=== PATIENT | female | born 1995 | race Caucasian/White ===

== ENCOUNTER 2019-03-26 02:07 | Inpatient (IN) | payer BC ==
[2019-03-26] MEDS ORDERED: Sodium Chloride 0.9% 10 ML Syringe FLUSH PRN (02:55)
[2019-03-26] MEDS ORDERED: Nalbuphine 20 MG/ML 1 ML Syringe IVPUSH PRN (02:55)
[2019-03-26] MEDS ORDERED: Oxytocin/Lactated Ringers 10 UNIT/1,000 ML BAG IV SCH (03:00)
[2019-03-26] MEDS ORDERED: Lactated Ringers 1,000 ML IV SCH (03:00)
[2019-03-26] MEDS ORDERED: Ampicillin 2 GM in Sodium Chloride 0.9% 100 ML IV ONE (03:15)
--- NOTE | 2019-03-26 05:50 | PCM.LDHP ---
L&D History of Present Illness - General Date of Service: 03/26/19 Admit Problem/Dx: Patient Status Order with Admit Dx/Problem 03/26/19 02:56 Patient Status [ADT] Routine Admission Diagnosis/Problem Admission Diagnosis/Problem 03/26/19 05:42 Rocío is a 23-year-old 1 para 0 presently at 40-3/7 weeks gestational age with an AVEL of 03/23/2019 admitted to labor and delivery in early active labor. Source of Information: Patient History Limitations: Reports: No Limitations - History of Present Illness Introduction:: Rocío Is a 23-year-old 1 para 0 white female was admitted in early active labor on 03/26/2019. She has an AVEL of 03/23/2019 placing her at 40-3/7 weeks gestational age. Patient began labor during the course of the night of . Tri approximately every 3-5 minutes and heart tones are reassuring. CONTROL TECHNICIAN history: Patient is a 1 para 0 AVEL of 03/23/2019 is determined by early ultrasound done on 08/31/2018 at 10-6/7 weeks gestational age. It is supported by a second ultrasound done at 20-4/7 weeks. Her course was relatively unremarkable. Patient plans to breast-feed. She declined genetic testing. She desires natural labor but is open to an epidural for analgesia if necessary. Group B strep screen is positive therefore suture is a candidate for antibiotic prophylaxis in labor and delivery. She is hypothyroid but has been clinically and laboratory euthyroid on replacement during the course of . T Dap immunization was administered on 01/18/2019. She is rubella immune. Her first visit was on 08/31/2018. Patient was seen on a regular basis during the course of . Her weight gain was 133-164.4 pounds for a 31.4 pound weight gain. Her vital signs remained stable throughout the course and her fundal height growth was appropriate. Laboratory testing and shows her blood to be AAB positive. Antibody screen is negative. First hemoglobin was 14.1 g/dL and platelets are 233,000. Her rubella titer shows immunity. RPR is nonreactive. Her urine culture was unremarkable. Hepatitis B surface antigen and HIV assays were both negative. Chlamydia and gonorrhea assays both negative. Second trimester labs showed hemoglobin of 12.5 g/dL. Platelets are 174,000. Her 1 hour glucose was 113. Group B strep screen was positive. Allergies: None Medications: 1. vitamins 1 daily 2. Levothyroxine 50 g daily Past medical history: 1. Hypothyroidism 2. Environmental allergies. Past surgical history: 1. Tonsillectomy 2013 Family history: Mother is alive and well as his father. She has 3 siblings who are all alive and well. Maternal grandfather is alive but has had back surgery. Maternal grandmother is alive and well. Paternal grandfather is alive but with heart disease and has had a heart attack and is presently on medication. Paternal grandmother is alive and well. There is no significant family history of cancer, related issues, anesthesia concerns, bleeding or blood clotting problems. She does have a maternal uncle with hemophilia but states that her mother is not a carrier. Social history: Patient is . is Agustín Robles. They live in [place], [place]. She does not use any significant loss of call, drugs or tobacco. Review of systems: In general patient has no complaints. Patient has no concerns. Baby has been active. Skin: Negative Lungs: No infectious symptoms or shortness of breath Cardiovascular: No chest pain or exercise intolerance Breasts: No lumps, changes in size, pain, dimpling, discharge or axillary or supraclavicular concerns. GI: Negative : Negative Musculoskeletal: Negative Neurological: Negative In general the patient is well-developed, well-nourished, pleasant female of stated age in no acute distress. Skin is warm dry without lesions. HEENT, neck and back within normal limits. Lungs are clear with good breath sounds in all lung tsai. Cardiovascular exam shows regular and rhythm without murmurs. Abdomen is gravid with fundal height on last evaluation clinic at 37.5 cm. Baby in vertex presentation by Rolly maneuvers. Genital exam on last evaluation in clinic shows cervix to be 2 cm, 80% effaced, very soft, -3, mid position Extremities and neurological exam are grossly within normal limits. - Related Data Allergies/Adverse Reactions: Allergies Allergy/AdvReac Type Severity Reaction Status Date / Time No Known Allergies Allergy Verified 03/26/19 03:02 Home Medications: Home Meds Levothyroxine [Synthroid] 50 mcg PO DAILY 03/26/19 [History] Past Medical History HEENT History: Reports: None CONTROL TECHNICIAN History: Reports: - Past Surgical History HEENT Surgical History: Reports: Tonsillectomy Social & Family History - Family History Family Medical History: Noncontributory - Tobacco Use Smoking Status *Q: Never Smoker - Caffeine Use Caffeine Use: Reports: None - Recreational Drug Use Recreational Drug Use: No H&P Review of Systems - Review of Systems: Review Of Systems: See Below L&D Exam - Exam Exam: See Below - Vital Signs Vital Signs: Last Vital Signs Temp 36.6 C 03/26/19 02:28 Pulse 59 L 03/26/19 02:28 Resp 16 03/26/19 02:28 BP 127/77 03/26/19 02:28 Pulse Ox 100 03/26/19 02:28 Weight: 75.523 kg - Patient Data Lab Results Last 24 hrs: Laboratory Results - last 24 hr 03/26/19 Range/Units 03:10 WBC 12.37 H (3.98-10.04) K/mm3 RBC 4.53 (3.98-5.22) M/mm3 Hgb 13.7 (11.2-15.7) gm/L Hct 40.2 (34.1-44.9) % MCV 88.7 (79.4-94.8) fl MCH 30.2 (25.6-32.2) pg MCHC 34.1 (32.2-35.5) g/dl RDW Std Deviation 43.0 (36.4-46.3) fL Plt Count 143 L (182-369) K/mm3 MPV 11.7 (9.4-12.3) fl Neut % (Auto) 72.6 H (34.0-71.1) % Lymph % (Auto) 18.3 L (19.3-51.7) % [place] % (Auto) 7.8 (4.7-12.5) % Eos % (Auto) 0.9 (0.7-5.8) Baso % (Auto) 0.2 (0.1-1.2) % Neut # (Auto) 8.98 H (1.56-6.13) K/mm3 Lymph # (Auto) 2.26 (1.18-3.74) K/mm3 [place] # (Auto) 0.97 H (0.24-0.36) K/mm3 Eos # (Auto) 0.11 (0.04-0.36) K/mm3 Baso # (Auto) 0.02 (0.01-0.08) K/mm3 Result Diagrams: 03/26/19 03:10 Problem List Initiated/Reviewed/Updated: Yes Orders Last 24hrs: Active Orders 24 hr Category Date Time Status Patient Status [ADT] Routine ADT 03/26/19 02:56 Active Activity as Tolerated [RC] PFP Care 03/26/19 02:55 Active Communication Order [RC] ASDIRECTED Care 03/26/19 02:55 Active Heart Tones [RC] ASDIRECTED Care 03/26/19 02:55 Active Notify Provider [RC] PFP Care 03/26/19 02:55 Active Notify Provider [RC] PRN Care 03/26/19 02:55 Active Peripheral IV Care [RC] . DIRECTED Care 03/26/19 02:55 Active Vital Signs [RC] PER UNIT ROUTINE Care 03/26/19 02:28 Active Vital Signs [RC] PER UNIT ROUTINE Care 03/26/19 02:55 Active Regular Diet [DIET] Diet 03/26/19 Breakfast Active RAPID PLASMA REAGIN,RPR [CHEM] Routine Lab 03/26/19 03:10 Received Ampicillin 1 gm Med 03/26/19 07:30 Active Sodium Chloride 0.9% [Normal Saline] 100 ml IV Q4H Lactated Ringers [Ringers, Lactated] 1,000 ml Med 03/26/19 03:00 Active IV ASDIRECTED Nalbuphine [Nubain] Med 03/26/19 02:55 Active 10 mg IVPUSH Q2H PRN Oxytocin/Lactated Ringers [Pitocin in LR 10 Units/1,000 Med 03/26/19 03:00 Active ML] 10 unit in 1,000 ml IV TITRATE Sodium Chloride 0.9% [Saline Flush] Med 03/26/19 02:55 Active 10 ml FLUSH ASDIRECTED PRN Electronic Heart Tones Ext w TOCO [WOMSER] Oth 03/26/19 02:55 Ordered Routine Electronic Heart Tones Internal [WOMSER] Per Unit Oth 03/26/19 02:55 Ordered Routine Peripheral IV Insertion Adult [OM.PC] Routine Ot 03/26/19 02:55 Ordered Resuscitation Status Routine Resus Stat 03/26/19 02:28 Ordered Medication Orders Ampicillin Sodium 1 gm/ Sodium (Chloride) 100 mls @ 200 mls/hr IV Q4H [place] Lactated Ringer's (Ringers, Lactated) 1,000 mls @ 100 mls/hr IV ASDIRECTED [place] Last Admin: 03/26/19 03:23 Dose: 100 mls/hr Oxytocin/Lactated Ringer's (Pitocin In Lr 10 Units/1,000 Ml) 10 unit in 1,000 mls @ 12 mls/hr IV TITRATE [place]; Protocol Nalbuphine HCl (Nubain) 10 mg IVPUSH Q2H PRN PRN Reason: pain Sodium Chloride (Saline Flush) 10 ml FLUSH ASDIRECTED PRN PRN Reason: Keep Vein Open Assessment/Plan Comment:: 1. 40-3/7 week intrauterine with an AVEL of 03/23/2019, admitted to labor and delivery in active early labor on 03/26/2019. 2. Group B strep screen positive. Patient candidate for ampicillin prophylaxis in L&D. 3. Rubella immune 4. Patient plans to breast-feed. 5. Patient desires natural labor but is open to epidural analgesia if she needs Plan: 1. Anticipate normal spontaneous vaginal delivery 2. Group B strep prophylaxis with ampicillin per protocol 3. Support breast-feeding decision 4. CBC, RPR upon admission to labor and delivery.
[2019-03-26] MEDS: Ampicillin 1 GM in Sodium Chloride 0.9% 100 ML IV SCH ×4 (07:31→19:25)
[2019-03-26] MEDS ORDERED: fentaNYL/Bupivacaine-NS 2 MCG/ML-0.125%/PF 100 ML Bag EPIDUR ONE (07:32)
[2019-03-26] MEDS ORDERED: fentaNYL 100 MCG/2 ML SDV EPIDUR PRN (07:32)
[2019-03-26] MEDS ORDERED: diphenhydrAMINE 50 MG/ML SDV IVPUSH PRN (07:32)
[2019-03-26] MEDS ORDERED: ePHEDrine 50 MG/ML SDV IVPUSH PRN (07:32)
[2019-03-26] MEDS ORDERED: Lidocaine 1% 50 ML MDV ONE (16:48)
[2019-03-26] MEDS ORDERED: Lidocaine 1% 50 ML MDV INJECT ONE (19:23)
--- NOTE | 2019-03-26 20:57 | PCM.SN ---
- Free Text/Narrative Note: Rocío is a 23-year-old 1, now para 1001 white female admitted in early active labor on 03/26/2019. She has an AVEL of 03/23/2018 placing her at 40-3/7 weeks gestational age upon admission. She began labor during the course of the night on 03/25/2019. Tri every 3-5 minutes with normal heart tones patient was admitted to labor and delivery. She underwent artificial rupture membranes with resultant clear amniotic fluid. Patient progressed steadily towards complete. She progressed with natural childbirth. She became completely dilated approximately 2 hours before her delivery. Lidocaine 1%10 mL was used to anesthetize the perineal area. At 2031 hrs. patient delivered a viable, shirley, female with Apgars of 9 and 9 , weight of 3580 g (7 pounds 14.3 ounces), a length of 21.0 inches in a left occiput anterior position. Baby was placed on mom's abdomen and nose were bulb suctioned. Cord was allowed to pulsate for approximately 3 minutes and then was clamped 2 and cut by the baby's father. Upon delivering the baby Pitocin was started IV to facilitate increase in uterine tone and decreased likelihood of bleeding. After cord was clamped the cord blood was obtained. The placenta then delivered in a Marr presentation, appeared intact and complete and was discarded per patient desire. Small superficial first-degree perineal lacerations repaired with 3-0 Monocryl 4 stitches. Estimated blood loss was 100 mL. Condition: Good. Patient plans to breast-feed.
[2019-03-26] MEDS ORDERED: Witch Hazel Medicated Pads 40/Jar TOP PRN (21:12)
[2019-03-26] MEDS ORDERED: Docusate Sodium 100 MG Cap PO PRN (21:12)
[2019-03-26] MEDS ORDERED: Benzocaine/Menthol 20%-0.5% Spray 56 GM Canister TOP PRN (21:12)
[2019-03-26] MEDS ORDERED: Lanolin 100% Cream 7 GM Tube TOP PRN (21:12)
[2019-03-26] MEDS ORDERED: Acetaminophen 325 MG Tab PO PRN (21:12)
[2019-03-27] MEDS ORDERED: Levothyroxine 50 MCG Tab PO SCH (06:00)
[2019-03-27] MEDS: Ibuprofen 600 MG Tab PO PRN ×3 (06:01→20:10)
[2019-03-27] MEDS: LEVOTHYROXINE 50 MCG PO SCH ×2 (06:03→15:42)
--- NOTE | 2019-03-27 11:46 | PCM.SN ---
- Free Text/Narrative Note: note: Patient is doing well in the period. Minimal lochia, voiding well, ambulated without problems. Nursing without concerns. Patient is afebrile, vital signs are stable Abdomen is flat, soft, uterus is below the umbilicus and is firm and nontender. Legs are nontender. Assessment: recovery going well. Plan: Routine care. Patient be discharged home within the next 24-48 hours.
--- NOTE | 2019-03-28 10:00 | PCM.SN ---
- Free Text/Narrative Note: note: day 2 Patient is doing well in the period. Minimal lochia, voiding well, ambulated without problems. Nursing without concerns. Baby has had some bloody emesis and this is being evaluated. Otherwise. Baby has been started on antibiotics and an IV. Monitoring and evaluation is ongoing. Patient is afebrile, vital signs are stable Abdomen is flat, soft, uterus is below the umbilicus and is firm and nontender. Legs are nontender. Assessment: recovery going well. Plan: Routine care. Patient be discharged home today. Mom will be able to stay with the baby as the baby is still admitted.
--- NOTE | 2019-03-28 10:05 | PCM.DCSUM1 ---
Discharge Summary - Hospital Course Free Text/Narrative:: 23 -year-old 1, para 0 white female in active labor at 40-3/7 weeks gestation. HPI Initial Comments: Rocío is a 23-year-old 1, now para 1001 white female admitted in early active labor on 03/26/2019. She has an AVEL of 03/23/2018 placing her at 40-3/7 weeks gestational age upon admission. She began labor during the course of the night on 03/25/2019. Tri every 3-5 minutes with normal heart tones patient was admitted to labor and delivery. She underwent artificial rupture membranes with resultant clear amniotic fluid. Patient progressed steadily towards complete. She progressed with natural childbirth. She became completely dilated approximately 2 hours before her delivery. Lidocaine 1%10 mL was used to anesthetize the perineal area. At 2031 hrs. patient delivered a viable, shirley, female infant with Apgars of 9 and 9 , weight of 3580 g (7 pounds 14.3 ounces), a length of 21.0 inches in a left occiput anterior position. Baby was placed on mom's abdomen and nose were bulb suctioned. Cord was allowed to pulsate for approximately 3 minutes and then was clamped 2 and cut by the baby's father. Upon delivering the baby Pitocin was started IV to facilitate increase in uterine tone and decreased likelihood of bleeding. After cord was clamped the cord blood was obtained. The placenta then delivered in a Marr presentation, appeared intact and complete and was discarded per patient desire. Small superficial first-degree perineal lacerations repaired with 3-0 Monocryl 4 stitches. Estimated blood loss was 100 mL. Condition: Good. Patient plans to breast-feed. the baby had some emesis with blood in it and is being evaluated, is presently on antibiotics. The baby will be staying after discharge of the mother. Nursing has been going well. Patient has minimal lochia. She is voiding well. She is desiring discharge from the hospital today. She will stay in the baby's room until baby is discharged. Diagnosis: Stroke: No - Discharge Data Discharge Date: 03/28/19 Discharge Disposition: Home, Self-Care 01 Condition: Good - Patient Instructions Diet: Regular Diet as Tolerated (Nursing diet with increased calories and calcium is recommended) Activity: As Tolerated ([place] or tampons until bleeding resolves.) Driving: May Drive Today Showering/Bathing: May Shower (May take a bath) Notify Provider of: Fever, Increased Pain, Swelling and Redness, Nausea and/or Vomiting - Discharge Plan Home Medications: Home Meds Levothyroxine [Synthroid] 50 mcg PO DAILY 03/26/19 [History] Acetaminophen [Tylenol] 650 mg PO Q4H PRN tablet 03/28/19 [Rx] Ibuprofen [Motrin] 600 mg PO Q4H PRN tablet 03/28/19 [Rx] - Discharge Summary/Plan Comment DC Time >30 min.: No Discharge Summary/Plan Comment: Discharge instructions: 1. Discharge home 2. Diet, activity and follow-up discussed with patient. Recommend nursing diet with increased calories and calcium. 3. Precautions given concern increased pain, bleeding, temperature, signs/ symptoms of DVT/PE. 4. Medications per home medication was printed, discussed with and given to the patient. 5. Return to clinic-[facility]. [facility] in 2 weeks. Diagnosis: Term -delivered Condition: Good - Patient Data Vitals - Most Recent: Last Vital Signs Temp 37.1 C 03/27/19 20:06 Pulse 67 03/27/19 20:06 Resp 16 03/27/19 20:06 BP 119/66 03/27/19 20:06 Pulse Ox 95 03/27/19 20:06 Weight - Most Recent: 75.523 kg Med Orders - Current: Current Medications Acetaminophen (Tylenol) 650 mg PO Q4H PRN PRN Reason: mild pain or fever Benzocaine/Menthol (Dermoplast Pain Relief [place]) 0 gm TOP ASDIRECTED PRN PRN Reason: Perineal Comfort Measure Last Admin: 03/26/19 23:00 Dose: 1 spray Docusate Sodium (Colace) 100 mg PO BID PRN PRN Reason: Constipation Emollient Ointment (Lansinoh Hpa) 0 gm TOP ASDIRECTED PRN PRN Reason: Sore Nipples Ibuprofen (Motrin) 600 mg PO Q4H PRN PRN Reason: Mild pain or fever Last Admin: 03/27/19 20:10 Dose: 600 mg Levothyroxine Sodium (Synthroid) 50 mcg PO ACBREAKFAST [facility] Last Admin: 03/27/19 15:42 Dose: Not Given Gisselle Yeung (Tucks) 1 pad TOP ASDIRECTED PRN PRN Reason: Pain Last Admin: 03/26/19 23:00 Dose: 1 applic Discontinued Medications Diphenhydramine HCl (Benadryl) 25 mg IVPUSH Q6H PRN PRN Reason: Itching Ephedrine Sulfate (Ephedrine Sulfate) 5 mg IVPUSH ASDIRECTED PRN PRN Reason: HYPOTENTSION Fentanyl (Sublimaze) 100 mcg EPIDUR Q3H PRN PRN Reason: Pain Fentanyl/Bupivacaine HCl (Uxlkhlwi-Nfroo-Ym 2 Mcg/Ml-0.125%) 100 ml EPIDUR ONETIME ONE Stop: 03/26/19 07:33 Last Admin: 03/26/19 19:23 Dose: Not Given Ampicillin Sodium 2 gm/ Sodium (Chloride) 100 mls @ 200 mls/hr IV ONETIME ONE Stop: 03/26/19 03:44 Last Admin: 03/26/19 03:23 Dose: 200 mls/hr Ampicillin Sodium 1 gm/ Sodium (Chloride) 100 mls @ 200 mls/hr IV Q4H [place] Last Admin: 03/26/19 19:25 Dose: 200 mls/hr Lactated Ringer's (Ringers, Lactated) 1,000 mls @ 100 mls/hr IV ASDIRECTED [place] Last Admin: 03/26/19 03:23 Dose: 100 mls/hr Oxytocin/Lactated Ringer's (Pitocin In Lr 10 Units/1,000 Ml) 10 unit in 1,000 mls @ 12 mls/hr IV TITRATE [place]; Protocol Last Titration: 03/26/19 20:34 Dose: 500 mls/hr Levothyroxine Sodium (Synthroid) 50 mcg PO ACBREAKFAST [place] Lidocaine HCl (Xylocaine 1%) Confirm Administered Dose 50 ml .ROUTE .STK-MED ONE Stop: 03/26/19 16:49 Last Admin: 03/26/19 19:23 Dose: Not Given Lidocaine HCl (Xylocaine 1%) 50 ml INJECT ONETIME ONE Stop: 03/26/19 19:24 Last Admin: 03/26/19 20:36 Dose: 50 ml Nalbuphine HCl (Nubain) 10 mg IVPUSH Q2H PRN PRN Reason: pain Sodium Chloride (Saline Flush) 10 ml FLUSH ASDIRECTED PRN PRN Reason: Keep Vein Open
[2019-03-28] MEDS: Ibuprofen 600 MG Tab PO PRN (10:17)
[2019-03-28] MEDS: LEVOTHYROXINE 50 MCG PO SCH (10:18)
== END 2019-03-28 14:40 | disposition home or self-care (01) | DRG 560 ==
LOC: JD.OB 02:07 → JD.OBCHECK 02:07 → JD.OB 02:56 → OBSVTOIN 20:32
PROVIDERS: ADMIT Obstetrics & Gynecology; ATTEND Obstetrics & Gynecology
PROC: 6A550ZT Pheresis of Cord Blood Stem Cells, Single (ICD-10-PCS; principal; 2019-03-26)
PROC: 10E0XZZ Delivery of Products of Conception, External Approach (ICD-10-PCS; principal; 2019-03-26)
PROC: 10907ZC Drainage of Amniotic Fluid, Therapeutic from Products of Conception, Via Natural or Artificial Opening (ICD-10-PCS; principal; 2019-03-26)
DX: O48.0 Post-term pregnancy (principal); Z3A.40 40 weeks gestation of pregnancy; O99.824 Streptococcus B carrier state complicating childbirth; O99.284 Endocrine, nutritional and metabolic diseases complicating childbirth; E03.9 Hypothyroidism, unspecified; Z37.0 Single live birth; Z79.890 Hormone replacement therapy
CPT/HCPCS: 36415; 59025; 59409; 85025; 86592; A9270-GY; J0290; J2001; J2590; J7030; J7120

== ENCOUNTER 2021-03-20 12:22 | Inpatient (IN) | payer BC ==
[2021-03-20] MEDS ORDERED: Oxytocin/Lactated Ringers 10 UNIT/1,000 ML BAG IV SCH (13:15)
[2021-03-20] MEDS ORDERED: Lactated Ringers 1,000 ML IV SCH (13:15)
[2021-03-20] MEDS ORDERED: Nalbuphine 10 MG/1 ML Vial IVPUSH PRN (13:15)
[2021-03-20] MEDS ORDERED: Ondansetron 4 MG/2 ML SDV IVPUSH PRN (13:15)
[2021-03-20] MEDS ORDERED: Sodium Chloride 0.9% 10 ML Syringe FLUSH PRN (13:15)
--- NOTE | 2021-03-20 16:06 | PCM.LDHP ---
L&D History of Present Illness - General Date of Service: 03/20/21 Admit Problem/Dx: Patient Status Order with Admit Dx/Problem 03/20/21 13:16 Patient Status [ADT] Routine 03/20/21 14:11 Patient Status [ADT] Routine Admission Diagnosis/Problem Admission Diagnosis/Problem Normal labor 03/20/21 15:56 Rocío is a 24-year-old 2 para 1-0-0-1 female who is at 40-0/7 weeks gestational age with an AVEL of 03/20/2021 admitted in active labor with advanced cervical dilation of 6 cm, 95% effacement, -1 station, mid position, very soft consistency and with baby in a cephalic presentation. Source of Information: Patient History Limitations: Reports: No Limitations - History of Present Illness Introduction:: Rocío is a 24-year-old 2 para 1-0-0-1 female who is at 40-0/7 weeks gestational age with an AVEL of 03/20/2021 admitted in active labor with advanced cervical dilation of 6 cm, 95% effacement, -1 station, mid position, very soft consistency and with baby in a cephalic presentation. She reports contractions started early this morning. She had been having intermittent contractions for the last 2 days. Baby has been active. She denies any rupture membranes or bleeding. PROCESS CONTROL MANAGER history: Patient is a 2 para 1-0-0-1. Her menarche was at age 14. Cycles q. 28 days. Normal length. Not using any control time of conception. LMP certain at 06/13/2020. Her LMP is used as a dating parameter for her and is supported by multiple ultrasounds during the course of her . Previous obstetric experience includes the following: Female born 03/26/2019 at 40-3/7 weeks gestational age after 12 hours of labor. weight was 7 pounds 14 ounces. . No anesthesia. Delivered at [facility]. Baby's name is Radha Quiroga. course. Patient was initially seen for the on 08/30/2020 and has been seen on a regular basis. She has been somewhat of a hands off patient. She was noted to have weight gain from 121.6 pounds up to 149.8 pounds. Fundal height growth was lagging somewhat during the course of early third trimester. Patient was evaluated with ultrasound at that time which placed her growth at approximately the 14th percentile. Follow-up of BPP's and ultrasounds were unremarked. Baby appears to be small in size but not to the point where there is a size less than dates discrepancy of concern. Patient desires natural labor. Her group B strep screen is negative. She refused any further evaluation after 03/01/2021 for small size baby. TSH done at initial labs was mildly elevated. On recheck it was normal. She declined genetic testing. She declined influenza vaccination. She declined Tdap. Her [place] depression screen score was 0/30. She plans to breast-feed. Patient is rubella immune. She had her varicella immunization 2000. Her hepatitis B immunization in 1995 and her meningococcal immunization in 2007. Laboratory testing in includes blood type AB+. Negative antibody screen. First hemoglobin is 14.4 g/dL and platelets are 219,000. She is rubella immune. RPR is nonreactive. Urine culture was negative. Hepatitis B surface antigen and HIV assays were both negative. Chlamydia and gonorrhea assays were both negative. TSH on 10/10/2020 was 4.129 milliunits/mL. Her second trimester hemoglobin was 13.2 g/dL and platelets are 189,000. Her diabetic screen test was normal at 96. RPR on 12/12/2020 was negative. Group B strep screen was negative. Free T4 on 10/10/2020 was 1.05. Recheck TSH on 12/13/2020 was normal. Allergies: None Medications: vitamins 1 p.o. daily Past medical history: 1. x1 2. Hypothyroidism recently diagnosed not on medications. 3. History of anxiety and depression Past surgical history: 1. Tonsillectomy 2013 Family history. Mother and father are alive and well. 3 siblings alive and well. Maternal grandfather is alive but has had back surgery. Maternal grandmother is alive and well. Paternal grandfather is alive but with heart disease, heart attack on medication. Paternal grandmother is at age 86 from pneumonia.. There is no family history of cancer, related issues, anesthesia related concerns, bleeding or blood clotting problems. She does have a maternal uncle with hemophilia but states her mother is not a carrier. Social history: Patient is . is [place]. She is a subc-pk-qoni mom. She lives in [place], [place]. She does not use any significant also alcohol, drugs or tobacco. Review of systems: In general patient has no complaints. The baby has been active. No problems are noted with the . Skin: Negative Lungs: No infectious symptoms or shortness of breath Cardiovascular: No chest pain or exercise intolerance Breasts: No lumps, changes in size, pain, dimpling, discharge or axillary or supraclavicular concerns. GI: Negative : changes only. Musculoskeletal: Negative Neurological: Negative Physical exam: In general the patient is well-developed, well-nourished, pleasant female of stated age in no acute distress. Skin is warm dry without lesions. HEENT, neck and back within normal limits. Lungs are clear with good breath sounds in all lung tsai. Cardiovascular exam shows regular and rhythm without murmurs. Exam done at first visit and not repeated at this time as it was normal then. Patient does plan to breast-feed. Abdomen is less fundal height in clinic at 36 cm. Baby in vertex presentation by Rolly maneuvers. Genital per digital exam shows cervix to be 6 cm, 95% effaced, -1 station, mid position and very soft. Baby in cephalic presentation. Membranes are intact. Patient chooses not to have AROM. - Related Data Allergies/Adverse Reactions: Allergies Allergy/AdvReac Type Severity Reaction Status Date / Time No Known Allergies Allergy Verified 03/26/19 03:02 Home Medications: Home Meds Levothyroxine [Synthroid] 50 mcg PO DAILY 03/26/19 [History] Acetaminophen [Tylenol] 650 mg PO Q4H PRN tablet 03/28/19 [Rx] Ibuprofen [Motrin] 600 mg PO Q4H PRN tablet 03/28/19 [Rx] Past Medical History - Past Health History Medical/Surgical History: Denies Medical/Surgical History HEENT History: Reports: None PROCESS CONTROL MANAGER History: Reports: Oncologic (Cancer) History: Reports: None - Past Surgical History HEENT Surgical History: Reports: Tonsillectomy Social & Family History - Family History Family Medical History: No Pertinent Family History - Tobacco Use Tobacco Use Status *Q: Never Tobacco User Second Hand Smoke Exposure: No - Caffeine Use Caffeine Use: Reports: None - Recreational Drug Use Recreational Drug Use: No H&P Review of Systems - Review of Systems: Review Of Systems: See Below L&D Exam - Exam Exam: See Below - Vital Signs Vital Signs: Last Vital Signs Temp 36.8 C 03/20/21 12:30 Pulse 64 03/20/21 12:30 Resp 16 03/20/21 12:30 BP 128/77 03/20/21 12:30 Pulse Ox 100 03/20/21 12:30 Weight: 68.039 kg - Patient Data Lab Results Last 24 hrs: Laboratory Results - last 24 hr 03/20/21 03/20/21 Range/Units 13:15 13:28 WBC 14.24 H (3.98-10.04) K/mm3 RBC 4.86 (3.98-5.22) M/mm3 Hgb 14.7 D (11.2-15.7) gm/dl Hct 43.4 (34.1-44.9) % MCV 89.3 (79.4-94.8) fl MCH 30.2 (25.6-32.2) pg MCHC 33.9 (32.2-35.5) g/dl RDW Std Deviation 44.8 (36.4-46.3) fL Plt Count 189 (182-369) K/mm3 MPV 10.6 (9.4-12.3) fl Neut % (Auto) 84.5 H (34.0-71.1) % Lymph % (Auto) 9.6 L (19.3-51.7) % [place] % (Auto) 5.3 (4.7-12.5) % Eos % (Auto) 0.3 L (0.7-5.8) Baso % (Auto) 0.1 (0.1-1.2) % Neut # (Auto) 12.04 H (1.56-6.13) K/mm3 Lymph # (Auto) 1.36 (1.18-3.74) K/mm3 [place] # (Auto) 0.75 H (0.24-0.36) K/mm3 Eos # (Auto) 0.04 (0.04-0.36) K/mm3 Baso # (Auto) 0.02 (0.01-0.08) K/mm3 Manual Slide Review Abnormal smear SARS-CoV-2 RNA (MATTHEW) Negative (NEGATIVE) Result Diagrams: 03/20/21 13:28 - Problem List (1) 40 weeks gestation of SNOMED Code(s): 64654927 ICD Code: Z3A.40 - 40 WEEKS GESTATION OF Status: Acute Current Visit: Yes Problem List Initiated/Reviewed/Updated: Yes Orders Last 24hrs: Active Orders 24 hr Category Date Time Status Patient Status [ADT] Routine ADT 03/20/21 14:11 Active Activity as Tolerated [RC] PFP Care 03/20/21 13:15 Active Communication Order [RC] ASDIRECTED Care 03/20/21 13:15 Active Notify Provider [RC] PFP Care 03/20/21 13:15 Active Notify Provider [RC] PRN Care 03/20/21 13:15 Active Peripheral IV Care [RC] . DIRECTED Care 03/20/21 13:16 Active Pump Management, Intrathecal [RC] ASDIRECTED Care 03/20/21 13:16 Active Vital Signs [RC] PER UNIT ROUTINE Care 03/20/21 13:15 Active Regular Diet [DIET] Diet 03/20/21 Lunch Active RAPID PLASMA REAGIN,RPR [CHEM] Routine Lab 03/20/21 13:28 Received Lactated Ringers [Ringers, Lactated] 1,000 ml Med 03/20/21 13:15 Active IV ASDIRECTED Nalbuphine [Nubain] Med 03/20/21 13:15 Active 10 mg IVPUSH Q2H PRN Ondansetron [Zofran] Med 03/20/21 13:15 Active 4 mg IVPUSH Q4H PRN Oxytocin/Lactated Ringers [Pitocin in LR 10 Units/1,000 Med 03/20/21 13:15 Active ML] 10 unit in 1,000 ml IV .CONTINUOUS Sodium Chloride 0.9% [Saline Flush] Med 03/20/21 13:15 Active 10 ml FLUSH ASDIRECTED PRN Electronic Heart Tones Ext w TOCO [WOMSER] Oth 03/20/21 13:15 Ordered Routine Electronic Heart Tones Internal [WOMSER] Per Unit Oth 03/20/21 13:15 Ordered Routine Peripheral IV Insertion Adult [OM.PC] Routine Oth 03/20/21 13:15 Ordered Resuscitation Status Routine Resus Stat 03/20/21 13:15 Ordered Medication Orders Oxytocin/Lactated Ringer's (Pitocin In Lr 10 Units/1,000 Ml) 10 unit in 1,000 mls @ 500 mls/hr IV .CONTINUOUS [place] Lactated Ringer's (Ringers, Lactated) 1,000 mls @ 100 mls/hr IV ASDIRECTED [place] Nalbuphine HCl (Nalbuphine 10 Mg/1 Ml Vial) 10 mg IVPUSH Q2H PRN PRN Reason: Pain Ondansetron HCl (Ondansetron 4 Mg/2 Ml Sdv) 4 mg IVPUSH Q4H PRN PRN Reason: Nausea/Vomiting Sodium Chloride (Sodium Chloride 0.9% 10 Ml Syringe) 10 ml FLUSH ASDIRECTED PRN PRN Reason: Keep Vein Open Assessment/Plan Comment:: 1Denise is a 24-year-old 2 para 1-0-0-1 female who is at 40-0/7 weeks gestational age with an AVEL of 03/20/2021 admitted in active labor with advanced cervical dilation of 6 cm, 95% effacement, -1 station, mid position, very soft consistency and with baby in a cephalic presentation. 2. Group B strep negative 3. Patient desires to nurse 4. Patient desires natural labor. 5. Patient declined Tdap, flu vaccination, genetic testing. Plan: 1. Anticipate 2. Natural labor 3. Support breast-feeding decision 4. Admission labs to include Covid19, CBC, RPR.
--- NOTE | 2021-03-20 17:21 | PCM.SN.2 ---
- Free Text/Narrative Note: Delivery note: Rocío is a 24-year-old 2 para now 2002 female who is at 40-0/7 weeks gestational age with an AVEL of 03/20/2021 admitted in active labor with advanced cervical dilation of 6 cm, 95% effacement, -1 station, mid position, very soft consistency and with baby in a cephalic presentation. Patient had been nemesio for several hours. Stage I: Approximately 8 hours - 10 hours as estimated by patient. Patient was admitted at 6 cm cervical dilation. She progressed quickly to complete cervical dilation. She requested to allow membranes to remain intact. She used no analgesia during stage I of labor. Cervix became completely dilated approximately 30 minutes prior to her delivery time. When patient began pushing membranes were artificially ruptured resulting in very mildly meconium-stained amniotic fluid. heart tones are generally reassuring throughout the stage I of labor. Contractions were allowed to progress naturally. Stage II: Baby delivered in a direct occiput posterior position. She delivered over an intact perineum. Baby was a viable, shirley, female named Anastasiia Valencia. She delivered at 1642 hrs. Apgars were 9 and 9, weight was 2910 g (6 pounds 7 ounces, length was 19.5 inches. The baby was placed on mom's abdomen, dried with a warm blanket, nose and mouth were bulb suction. The umbilical cord was allowed to pulsate for approximately 3 minutes after which was clamped x2 and cut by the baby's father Agustín. Should be noted there was a nuchal cord x1 around the neck and shoulder. This was reduced over the baby's body as the baby delivered. Pitocin was started after the baby is born and run at 500 cc an hour to facilitate increase in uterine tone and decrease likelihood of bleeding. Stage III: The umbilical cord had 3 vessels. Cord blood was obtained. The placenta delivered at 1657 hrs. in a Still fashion, appeared complete and intact and was discarded per patient desire. The perineum was visualized and no lacerations were noted therefore no sutures were placed. Estimated blood loss: 100 cc. Patient plans to breast-feed. Condition: Good.
[2021-03-20] MEDS ORDERED: Benzocaine/Menthol 20%-0.5% Spray 56 GM Canister TOP PRN (18:09)
[2021-03-20] MEDS ORDERED: Acetaminophen 325 MG Tab PO PRN (18:09)
[2021-03-20] MEDS ORDERED: Docusate Sodium 100 MG Cap PO PRN (18:09)
[2021-03-20] MEDS ORDERED: Witch Hazel Medicated Pads 40/Jar TOP PRN (18:09)
[2021-03-20] MEDS: Ibuprofen 600 MG Tab PO PRN (18:34)
[2021-03-21] MEDS: Ibuprofen 600 MG Tab PO PRN ×2 (00:59→07:36)
--- NOTE | 2021-03-21 07:38 | PCM.SN.2 ---
- Free Text/Narrative Note: note: day #1 Patient is doing well in the period. Minimal lochia, voiding well, ambulated without problems. Nursing without concerns. Patient is afebrile, vital signs are stable Abdomen is flat, soft, uterus is below the umbilicus and is firm and nontender. Legs are nontender. Assessment: recovery going well. Plan: Routine care. Patient be discharged home within the next 24-48 hours.
--- NOTE | 2021-03-21 07:55 | PCM.DCSUM1 ---
Discharge Summary - Hospital Course Free Text/Narrative:: Rocío is a 24-year-old 2 para now 2002 female who is at 40-0/7 weeks gestational age with an AVEL of 03/20/2021 admitted in active labor with advanced cervical dilation of 6 cm, 95% effacement, -1 station, mid position, very soft consistency and with baby in a cephalic presentation. Patient had been nemesio for several hours. Stage I: Approximately 8 hours - 10 hours as estimated by patient. Patient was admitted at 6 cm cervical dilation. She progressed quickly to complete cervical dilation. She requested to allow membranes to remain intact. She used no analgesia during stage I of labor. Cervix became completely dilated approx imately 30 minutes prior to her delivery time. When patient began pushing membranes were artificially ruptured resulting in very mildly meconium-stained amniotic fluid. heart tones are generally reassuring throughout the stage I of labor. Contractions were allowed to progress naturally. Stage II: Baby delivered in a direct occiput posterior position. She delivered over an intact perineum. Baby was a viable, shirley, female infant named Anastasiia Valencia. She delivered at 1642 hrs. Apgars were 9 and 9, weight was 2910 g (6 pounds 7 ounces, length was 19.5 inches. The baby was placed on mom's abdomen, dried with a warm blanket, nose and mouth were bulb suction. The umbilical cord was allowed to pulsate for approximately 3 minutes after which was clamped x2 and cut by the baby's father Agustín. Should be noted there was a nuchal cord x1 around the neck and shoulder. This was reduced over the baby's body as the baby delivered. Pitocin was started after the baby is born and run at 500 cc an hour to facilitate increase in uterine tone and decrease likelihood of bleeding. Stage III: The umbilical cord had 3 vessels. Cord blood was obtained. The placenta delivered at 1657 hrs. in a Still fashion, appeared complete and intact and was discarded per patient desire. The perineum was visualized and no lacerations were noted therefore no sutures were placed. Estimated blood loss: 100 cc. Patient plans to breast-feed. Patient is done well. She is nursing without problems, has minimal lochia and is voiding well. She is ambulating without concerns. She is desiring discharge home after 24 hours postdelivery. Condition: Good. Diagnosis: Stroke: No - Discharge Data Discharge Date: 03/21/21 Discharge Disposition: Home, Self-Care 01 Condition: Good - Referral to Home Health Primary Care Physician: Don Soto MD - Discharge Diagnosis/Problem(s) (1) 40 weeks gestation of SNOMED Code(s): 42866310 ICD Code: Z3A.40 - 40 WEEKS GESTATION OF Status: Acute Current Visit: Yes - Patient Instructions Diet: Regular Diet as Tolerated (Seen diet with increased calories and calcium as recommended) Activity: As Tolerated (No intercourse or tampons until bleeding resolves) Driving: May Drive Today Showering/Bathing: May Shower Showering/Bathing, Other: May take a bath Notify Provider of: Fever, Increased Pain, Swelling and Redness, Nausea and/or Vomiting - Discharge Plan Home Medications: Home Meds Acetaminophen [Tylenol] 650 mg PO Q4H PRN tablet 03/28/19 [Rx] Ibuprofen [Motrin] 600 mg PO Q4H PRN tablet 03/28/19 [Rx] Referrals: Don Soto MD [Primary Care Provider] - (Return to clinic[facility] weeks.) - Discharge Summary/Plan Comment DC Time >30 min.: No Discharge Summary/Plan Comment: Discharge instructions: 1. Discharge home 2. Diet, activity and follow-up discussed with patient. Recommend nursing diet with increased calories and calcium. 3. Precautions given concern increased pain, bleeding, temperature, signs/symptoms of DVT/PE. 4. Medications per home medication was printed, discussed with and given to the patient. 5. Return to clinic-Dr. Soto[facility] in 2 weeks. Diagnosis: Term -delivered Condition: Good - Patient Data Vitals - Most Recent: Last Vital Signs Temp 36.7 C 03/21/21 05:08 Pulse 73 03/21/21 05:08 Resp 14 03/21/21 05:08 BP 118/64 03/21/21 05:08 Pulse Ox 98 03/21/21 05:08 Weight - Most Recent: 68.039 kg I&O - Last 24 hours: Intake & Output 03/20/21 03/21/21 03/21/21 22:59 06:59 14:59 Intake Total 500 Balance 500 Lab Results - Last 24 hrs: Laboratory Results - last 24 hr 03/20/21 03/20/21 03/20/21 Range/Units 13:15 13:28 13:28 WBC 14.24 H (3.98-10.04) K/mm3 RBC 4.86 (3.98-5.22) M/mm3 Hgb 14.7 D (11.2-15.7) gm/dl Hct 43.4 (34.1-44.9) % MCV 89.3 (79.4-94.8) fl MCH 30.2 (25.6-32.2) pg MCHC 33.9 (32.2-35.5) g/dl RDW Std Deviation 44.8 (36.4-46.3) fL Plt Count 189 (182-369) K/mm3 MPV 10.6 (9.4-12.3) fl Neut % (Auto) 84.5 H (34.0-71.1) % Lymph % (Auto) 9.6 L (19.3-51.7) % [place] % (Auto) 5.3 (4.7-12.5) % Eos % (Auto) 0.3 L (0.7-5.8) Baso % (Auto) 0.1 (0.1-1.2) % Neut # (Auto) 12.04 H (1.56-6.13) K/mm3 Lymph # (Auto) 1.36 (1.18-3.74) K/mm3 [place] # (Auto) 0.75 H (0.24-0.36) K/mm3 Eos # (Auto) 0.04 (0.04-0.36) K/mm3 Baso # (Auto) 0.02 (0.01-0.08) K/mm3 Manual Slide Review Abnormal smear RPR Non-reactive (NONREACTIVE) SARS-CoV-2 RNA (MATTHEW) Negative (NEGATIVE) Med Orders - Current: Current Medications Acetaminophen (Acetaminophen 325 Mg Tab) 650 mg PO Q4H PRN PRN Reason: mild pain or fever Benzocaine/Menthol (Benzocaine/Menthol 20%-0.5% [place] 56 Gm Canister) 0 gm TOP ASDIRECTED PRN PRN Reason: Perineal Comfort Measure Docusate Sodium (Docusate Sodium 100 Mg Cap) 100 mg PO BID PRN PRN Reason: Constipation Ibuprofen (Ibuprofen 600 Mg Tab) 600 mg PO Q4H PRN PRN Reason: Mild pain or fever Last Admin: 03/21/21 07:36 Dose: 600 mg Documented by: Nirmala Multivit/Warrant Clerk/Iron/Folic Ac ( Multivitamin With Calcium/Folic Acid/Iron Tab) 1 each PO DAILY [facility] Witch Anjana (Witch Anjana Medicated Pads 40/Jar) 1 pad TOP ASDIRECTED PRN PRN Reason: Perineal Comfort Measure Discontinued Medications Oxytocin/Lactated Ringer's (Pitocin In Lr 10 Units/1,000 Ml) 10 unit in 1,000 mls @ 500 mls/hr IV .CONTINUOUS [place] Last Admin: 03/20/21 18:44 Dose: 500 mls/hr Documented by: Lactated Ringer's (Ringers, Lactated) 1,000 mls @ 100 mls/hr IV ASDIRECTED [place] Nalbuphine HCl (Nalbuphine 10 Mg/1 Ml Vial) 10 mg IVPUSH Q2H PRN PRN Reason: Pain Ondansetron HCl (Ondansetron 4 Mg/2 Ml Sdv) 4 mg IVPUSH Q4H PRN PRN Reason: Nausea/Vomiting Sodium Chloride (Sodium Chloride 0.9% 10 Ml Syringe) 10 ml FLUSH ASDIRECTED PRN PRN Reason: Keep Vein Open
[2021-03-21] MEDS ORDERED: Prenatal Multivitamin with Calcium/Folic Acid/Iron Tab PO SCH (09:00)
== END 2021-03-21 17:40 | disposition home or self-care (01) | DRG 560 ==
LOC: JD.OBCHECK 12:22 → JD.OB 12:27 → JD.OBCHECK 14:11 → JD.OB 14:11 → OBSVTOIN 16:52 → JD.OB 17:14
PROVIDERS: ADMIT Obstetrics & Gynecology; ATTEND Obstetrics & Gynecology
PROC: 10E0XZZ Delivery of Products of Conception, External Approach (ICD-10-PCS; principal; 2021-03-20)
PROC: 10907ZC Drainage of Amniotic Fluid, Therapeutic from Products of Conception, Via Natural or Artificial Opening (ICD-10-PCS; 2021-03-20)
DX: O48.0 Post-term pregnancy (principal); Z3A.40 40 weeks gestation of pregnancy; Z37.0 Single live birth; O77.0 Labor and delivery complicated by meconium in amniotic fluid; O69.81X0 Labor and delivery complicated by cord around neck, without compression, not applicable or unspecified; E03.9 Hypothyroidism, unspecified; Z20.822 Contact with and (suspected) exposure to COVID-19
CPT/HCPCS: 36415; 59025; 59409; 85025; 86592; A9270-GY; J2590; U0002

== ENCOUNTER 2023-01-28 08:50 | Inpatient (IN) | payer OTHER ==
[2023-01-28] MEDS ORDERED: Sodium Chloride 0.9% 10 ML Syringe FLUSH PRN (09:13)
[2023-01-28] MEDS ORDERED: Nalbuphine 10 MG/0.5 ML Syringe IVPUSH PRN (09:13)
[2023-01-28] MEDS ORDERED: Oxytocin/Lactated Ringers 10 UNIT/1,000 ML BAG IV SCH ×2 (09:15→13:45)
[2023-01-28] MEDS ORDERED: Lactated Ringers 1,000 ML IV SCH (09:15)
[2023-01-28] MEDS ORDERED: Ondansetron 4 MG/2 ML SDV IVPUSH PRN (10:01)
[2023-01-28] MEDS ORDERED: Lidocaine 1% 50 ML MDV INJECT SCH (10:01)
[2023-01-28] MEDS ORDERED: Acetaminophen 325 MG Tab PO PRN (15:42)
[2023-01-28] MEDS ORDERED: Ibuprofen 600 MG Tab PO PRN (15:42)
[2023-01-28] MEDS ORDERED: Witch Hazel Medicated Pads 40/Jar TOP PRN (15:42)
[2023-01-28] MEDS ORDERED: Benzocaine/Menthol 20%-0.5% Spray 78 GM Cannister TOP PRN (15:42)
[2023-01-28] MEDS ORDERED: Sodium Chloride 0.9% 10 ML Syringe FLUSH SCH (21:00)
== END 2023-01-29 14:59 | disposition home or self-care (01) | DRG 806 ==
LOC: JD.OBCHECK 08:50 → JD.OB 08:54 → JD.OBCHECK 10:01 → OBSVTOIN 14:21 → JD.MS 14:43
PROVIDERS: ADMIT Obstetrics & Gynecology; ATTEND Obstetrics & Gynecology
PROC: 10E0XZZ Delivery of Products of Conception, External Approach (ICD-10-PCS; principal; 2023-01-28)
DX: O48.0 Post-term pregnancy (principal); O98.52 Other viral diseases complicating childbirth; Z37.0 Single live birth; Z3A.40 40 weeks gestation of pregnancy; O99.284 Endocrine, nutritional and metabolic diseases complicating childbirth; E03.9 Hypothyroidism, unspecified; B00.9 Herpesviral infection, unspecified
CPT/HCPCS: 36415; 59025; 59409; 85027; 86592; J2590; J7120